=== PATIENT | female | born 1950 | race Caucasian/White ===

== ENCOUNTER 2017-05-20 01:50 | Emergency (ER) | payer SELFPAY ==
[~2017-05-20] VITALS: Ht 167.6 cm; Wt 94.0 kg
[2017-05-20 01:55] VITALS: Ht 167.6 cm; Wt 94.0 kg
--- NOTE | 2017-05-20 03:06 | ERD ---
ER Documentation Chief Complaint Chief Complaint cough x 1 day HPI 66-year-old female presents here in emergency department for complaints of cough started today. Patient has been having dry cough, does not cough up any phlegm or blood. Patient has been having on and off wheezing. Patient denies any fever or chills. Patient denies any chest pain or palpitation. ROS All systems reviewed and are negative except as per history of present illness. Medications Home Meds Reported Medications [none] Unknown Strength No Conflict Check 05/20/17 Allergies Allergies: Coded Allergies: No Known Allergy (Unverified , 05/20/17) PMhx/Soc Medical and Surgical Hx: pt denies Medical Hx, pt denies Surgical Hx Hx Alcohol Use: No Hx Substance Use: No Hx Tobacco Use: No Smoking Status: Never smoker FmHx Family History: No coronary disease, No diabetes, No other Physical Exam Vitals Vital Signs Date Time Temp Pulse Resp B/P Pulse Ox O2 Delivery O2 Flow Rate FiO2 05/20/17 01:55 99.4 110 20 153/82 99 Physical Exam GENERAL: The patient is well developed and appropriate for usual state of health, in no apparent distress. CHEST: Clear to auscultation bilaterally. There are no rales, wheezes or rhonchi. HEART: Regular rate and rhythm. No murmurs, clicks, rubs or gallops. No S3 or S4. ABDOMEN: Soft, nontender and nondistended. Good bowel sounds. No rebound or guarding. No gross peritonitis. No gross organomegaly or masses. No Watkins sign or McBurney point tenderness. BACK: No midline or flank tenderness. EXTREMITIES: Equal pulses bilaterally. There is no peripheral clubbing, cyanosis or edema. No focal swelling or erythema. Full range of motion. Grossly neurovascularly intact. NEURO: Alert and oriented. Cranial nerves 2-12 intact. Motor strength in all 4 extremities with 5/5 strength. Sensation grossly intact. Normal speech and gait. SKIN: There is no apparent rash or petechia. The skin is warm and dry. HEMATOLOGIC AND LYMPHATIC: There is no evidence of excessive bruising or lymphedema. No gross cervical, axillary, or inguinal lymphadenopathy. Results 24 hrs Current Medications Medications (Trade) Dose Ordered Sig/Mary Route PRN Reason Start Time Stop Time Status Last Admin Dose Admin Guaifenesin/ Dextromethorphan (Robitussin Dm Liquid Cup) 10 ml ONCE ONCE PO 10/29/17 03:30 05/20/17 03:31 DC 05/20/17 03:29 Cough medication was given here in emergency department, verbalized feeling much better afterwards. PROCEDURE: XR Chest. CLINICAL INDICATION: Cough TECHNIQUE: Portable single view of the chest COMPARISON: None. FINDINGS: The heart size is top normal. There is a rounded area of increased opacity in the medial left retrocardiac region. The lungs otherwise clear. No pleural effusion is seen. Top normal pulmonary vascularity. Slight aortic calcification. No bony abnormality is seen. IMPRESSION: Rounded left retrocardiac opacity which could be due to an area of rounded infiltrate, mass, or hiatal hernia. PA and lateral views may be helpful for further evaluation. RPTAT: [facility] Physician Robert Date Time Electronically viewed and signed by Carolin Johnson Physician on 05/20/2017 04 :17 LE/ CC: GRIFFIN DOYLE [employer] Procedures/MDM Medical Decision Making: Patient symptoms are most likely consistent with Pneumonia. Outpatient management is appropriate at this time since patient O2 saturation is normal and patient doesnt show any respiratory distress. There is low suspicion for other cardiopulmonary emergencies at this time such as CHF , Pulmonary Embolism, Pneumothorax, Aortic Aneurysm or any other cardiopulmonary emergencies at this time. There is low suspicion for sepsis. Patient appears well and is hemodynamically stable. Fever is controlled with medicines. Disposition: Home. Condition: Stable Prescriptions: Levaquin, guaifenesin DM, albuterol Instructions: Patient is advised to take medications as prescribed. Patient is advised to rest. Patient advised to increase fluid intake, do humidifier at home and if possible, do salt water gargles. Patient is advised that if symptoms are worse, shortness of breath, uncontrolled fever, stridor, vomiting, worst signs and symptoms to return to emergency department immediately. Otherwise, patient is advised to follow up with primary doctor in 5-7 days. Disclaimer: Inadvertent spelling and grammatical errors are likely due to EHR/ dictation software use and do not reflect on the overall quality of patient care. Also, please note that the electronic time recorded on this note does not necessarily reflect the actual time of the patient encounter. Departure Diagnosis: Primary Impression: Pneumonia Pneumonia type: due to unspecified organism Laterality: left Lung location : unspecified part of lung Qualified Code: J18.9 - Pneumonia of left lung due to infectious organism, unspecified part of lung Condition: Stable Patient Instructions: Pneumonia (Adult) Additional Instructions: Patient is advised to take medications as prescribed. Patient is advised to rest. Patient advised to increase fluid intake, do humidifier at home and if possible, do salt water gargles. Patient is advised that if symptoms are worse, shortness of breath, uncontrolled fever, stridor, vomiting, worst signs and symptoms to return to emergency department immediately. Otherwise, patient is advised to follow up with primary doctor in 5-7 days. GRIFFIN DOYLE NP May 20, 2017 03:06
[2017-05-20] MEDS ORDERED: GUAIFENESIN/DM 5ML CUP PO ONE (03:30)
--- NOTE | 2017-05-20 04:18 | RADRPT ---
PROCEDURE: XR Chest. CLINICAL INDICATION: Cough TECHNIQUE: Portable single view of the chest COMPARISON: None. FINDINGS: The heart size is top normal. There is a rounded area of increased opacity in the medial left retroc ardiac region. The lungs otherwise clear. No pleural effusion is seen. Top normal pulmonary vascular ity. Slight aortic calcification. No bony abnormality is seen. IMPRESSION: Rounded left retrocardiac opacity which could be due to an area of rounded infiltrate, mass, or hiat al hernia. PA and lateral views may be helpful for further evaluation. RPTAT: [facility] Physician Robert Date Time Electronically viewed and signed by Carolin Johnson Physician on 05/20/2017 04:17 LE/
[2017-05-20] MEDS ORDERED: CETI10CA PO (04:30)
[2017-05-20] MEDS ORDERED: ALBU8.5H3 INH (04:30)
[2017-05-20] MEDS ORDERED: GUAI120S26 PO (04:30)
[2017-05-20] MEDS ORDERED: LEVO500T72 PO (04:30)
== END 2017-05-20 05:08 | disposition home or self-care (01) ==
LOC: FTE 01:50
DX: J18.9 Pneumonia, unspecified organism (principal)
CPT/HCPCS: 71010